=== PATIENT | female | born 1970 | race Caucasian/White ===

== ENCOUNTER → 2020-03-11 | Outpatient (CLI) | payer OTHER ==
--- NOTE | 2020-03-11 13:20 | RAD ---
EXAM: Chest and bilateral ribs, 7 views. HISTORY: Pain. COMPARISON: None. FINDINGS: A frontal view of the chest and 6 views of the ribs are obtained. There is no infiltrate, pleural effusion or pneumothorax. The heart is normal in size. There are healed left fifth, sixth, seventh and eighth rib fractures. There may also be a healed right eighth rib fracture. No convincing acute fracture is seen. IMPRESSION: No acute pulmonary or osseous finding. Electronically signed by: Maria L Mcginnis MD (03/11/2020 1:17 PM) [id number]
== END | disposition home or self-care (01) ==
LOC: RAD 12:35
PROVIDERS: ATTEND Family Medicine
DX: S22.31XD Fracture of one rib, right side, subsequent encounter for fracture with routine healing (principal); V89.2XXD Person injured in unspecified motor-vehicle accident, traffic, subsequent encounter
CPT/HCPCS: 71111